=== PATIENT | female | born 1975 | race Caucasian/White ===

== ENCOUNTER 2018-08-11 07:50 | Day surgery (SDC) | payer BC ==
[2018-08-11] MEDS ORDERED: FENTANYL PF 100MCG/2ML VIAL IV ONE (07:51)
[2018-08-11] MEDS ORDERED: PROPOFOL 10 MG/ML VIAL IV ONE (07:51)
[2018-08-11] MEDS ORDERED: LIDOCAINE 2% MDV (20MG/ML) 20ML VIAL IV ONE (07:51)
--- NOTE | 2018-08-12 07:20 | Operative Note ---
OPERATION: ESOPHAGOGASTRODUODENOSCOPY with biopsy. PREOPERATIVE DIAGNOSIS: Warren's. POSTOPERATIVE DIAGNOSIS: Warren's. PROCEDURE: After informed consent was obtained from the patient, she was placed in the left lateral decubitus position in the endoscopy suite, sedated and monitored by the department of anesthesia. Once sedated, a well-lubricated PJO017 gastroscope was placed in the posterior oropharynx under direct visualization and passed to the proximal esophagus. The endoscope was advanced through the proximal, mid, and distal esophagus. The GE junction was irregular. No ulcerations, strictures, varices, nodularity, or mass lesions were seen. The gastric body, antrum, pylorus, duodenal bulb, and sweep were unremarkable. J- turn views of the proximal stomach were unrevealing. The endoscope was straightened. GE junction biopsies were obtained. The endoscope was removed from the patient with no new findings noted. RECOMMENDATIONS: I would suggest the patient continue daily PPI. She should undergo repeat upper endoscopy in 3 years. As always, thank you for allowing me to participate in the healthcare of your patients. CC: MEERA VARGAS MD, FACP [facility]
== END 2018-08-11 09:42 | disposition home or self-care (01) ==
LOC: HOP 07:50
PROVIDERS: ATTEND Internal Medicine Gastroenterology
DX: K22.70 Barrett's esophagus without dysplasia (principal); K31.9 Disease of stomach and duodenum, unspecified; K20.9 Esophagitis, unspecified; R12 Heartburn
CPT/HCPCS: 43239; 00731; J3010